=== PATIENT | female | born 1980 | race Caucasian/White ===

== ENCOUNTER 2025-01-28 04:15 | Emergency (ER) | payer OTHER ==
[~2025-01-28] VITALS: Ht 17.8 cm; Wt 31.4 kg
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
--- NOTE | 2025-01-28 05:04 | DVH ---
MEDICAL RECORDS NUMBER: [id number] PROCEDURE: XY R WRIST 3+ VIEW XRAY DATE: 01/28/2025 04:40 AM HISTORY: Status post fall right wrist injury/deformity COMPARISON: None FINDINGS/IMPRESSION: Questionable cortical irregularity of the distal radius raises concern for fracture. Associated soft tissue swelling is noted. No other evidence of injury is seen. CT may be prudent for further evaluation.
[2025-01-28] MEDS ORDERED: IBUP-1456 PO ×2 (05:27→08:05)
[2025-01-28 06:12] VITALS: BP 110/64; PULSE 71; RESP 16; TEMP 98.6; O2SAT 98
== END 2025-01-28 06:12 | disposition home or self-care (01) ==
LOC: EDBD 04:15 → ER 04:15
DX: S52.501A Unspecified fracture of the lower end of right radius, initial encounter for closed fracture (principal); W19.XXXA Unspecified fall, initial encounter; Y93.89 Activity, other specified; Y92.89 Other specified places as the place of occurrence of the external cause; Y99.8 Other external cause status
CPT/HCPCS: 29125; 73110